=== PATIENT | female | born 1995 | race Caucasian/White ===

== ENCOUNTER 2017-02-24 11:19 | Emergency (ER) | payer OTHER ==
[~2017-02-24] VITALS: Wt 60.0 kg
[2017-02-24] MEDS ORDERED: PHEN118L PO (12:24)
[2017-02-24] MEDS ORDERED: IBUP400T22 PO (12:24)
[2017-02-24] MEDS ORDERED: CARB15DR48 BOTH EARS (12:25)
[2017-02-24 12:41] VITALS: BP 128/78; PULSE 78; RESP 17
--- NOTE | 2017-02-24 13:55 | ERD ---
ER Documentation Chief Complaint Date/Time DATE: 02/24/17 TIME: 13:53 Chief Complaint COUGH AND FEVER FOR THE PAST FEW DAYS. NO DISTRESS NOTED. HPI This is a 21-year-old female presenting to the emergency room complaining of cough, feve, body aches the past 2 days. Patient states that the cough is worse at nighttime. She has tried Robitussin without any relief. She denies any chest pain or shortness of breath. She admits to having a very mild headache. She denies any urinary symptoms, nausea, vomiting. ROS All systems reviewed and are negative except as per history of present illness. Medications Home Meds Active Scripts Carbamide Peroxide* (Debrox*) 6.5% - 15 Ml Drops, 10 DROP BOTH EARS BID for 3 Days, BOTTLE Prov:SUMI LINDSAY PA-C 02/24/17 Phenylephrine/Diphenhydramine (DIMETAPP COLD & CONGEST LIQUID) 118 Ml Liquid, 5 ML PO Q4H Y for COUGH, #4 OZ Prov:SUMI LINDSAY PA-C 02/24/17 Ibuprofen* (Motrin*) 400 Mg Tab, 400 MG PO Q6H Y for PAIN AND OR ELEVATED TEMP, #30 TAB Prov:SUMI LINDSAY PA-C 02/24/17 PMhx/Soc Medical and Surgical Hx: pt denies Medical Hx, pt denies Surgical Hx Hx Alcohol Use: No Hx Substance Use: No Hx Tobacco Use: No Smoking Status: Never smoker Physical Exam Vitals Vital Signs Date Time Temp Pulse Resp B/P Pulse Ox O2 Delivery O2 Flow Rate FiO2 02/24/17 12:41 78 17 128/78 98 Room Air 02/24/17 11:23 98.8 76 20 131/78 98 Physical Exam GENERAL: [well-developed/well-nourished, in no apparent distress, non-toxic appearing [Playful] HEAD: NC/AT, no swelling noted in frontal or maxillary areas EARS: [bilateral tympanic membrane is intact without erythema or effusion] [Negative tragus tenderness, negative pinna tenderness, external ear normal] [No mastoid tenderness] NARES: nares [congested] THROAT: oropharynx [non-erythematous without exudates, no tonsil enlargement] EYES: [Conjunctiva normal] NECK: Supple, [no lymphadenopathy] PULM: [CTA bilaterally, no rales, rhonchi, or wheezing heard ] CV: [Normal S1S2, RRR] GI: [Soft, non-distended, normal bowel sounds, no guarding] BACK: [No midline tenderness, no masses] EXT [No clubbing, cyanosis, or edema] NEURO: [Alert and Orientated] SKIN: [Intact, normal turgor] PSYCH: [Acts appropriately with parent] Procedures/MDM MDM: 21-year-old female presents to the ER with upper respiratory infection, which is most likely viral. My clinical suspicion is low suspicion for pneumonia , strep pharyngitis, or pulmonary emergencies due to physical examination. Patient's lungs were clear on examination. DISPOSITION: hemodynamically stable for discharge. Prescription for Claritin, Dimetapp, ibuprofen was given to patient, discussed to return to the ED if not improving as expected or follow-up with a primary care physician. Patient understood and agreed with this plan. Departure Diagnosis: Primary Impression: URI (upper respiratory infection) Condition: Stable Patient Instructions: Preventing Common Respiratory Infections, Uri, Viral, No Abx (Adult) Additional Instructions: FOLLOW UP WITH YOUR PRIMARY CARE PHYSICIAN TOMORROW.Return to this facility if you are not improving as expected. Take all medicines as directed. SUMI LINDSAY PA-C Feb 24, 2017 13:54
== END 2017-02-24 12:45 | disposition home or self-care (01) ==
LOC: FTE 11:19
DX: J06.9 Acute upper respiratory infection, unspecified (principal)
CPT/HCPCS: 99283